=== PATIENT | male | born 1990 | race Caucasian/White ===

== ENCOUNTER 2020-04-08 18:16 | Emergency (ER) | payer SELFPAY ==
[2020-04-08 18:17] VITALS: BP 123/71; PULSE 85; RESP 18; TEMP 37.2; O2SAT 100
--- NOTE | 2020-04-08 19:33 | ED.GENADULT ---
HPI - General Adult General Chief complaint: Wound/Laceration <Jordan Garcia PA-C - Last Filed: 04/08/20 19:37> Stated complaint: needs stitches removed <Jordan Garcia PA-C - Last Filed: 04/08/20 19:37> Time Seen by Provider: 04/08/20 18:25 <Jordan Garcia PA-C - Last Filed: 04/08/20 19:37> Source: patient <Jordan Garcia PA-C - Last Filed: 04/08/20 19:37> Mode of arrival: ambulatory <Jordan Garcia PA-C - Last Filed: 04/08/20 19:37> Limitations: no limitations <Jordan Garcia PA-C - Last Filed: 04/08/20 19:37> History of Present Illness HPI narrative: Patient is a 29-year-old male who presents to emergency department for evaluation of laceration to the forehead that was done 7 days ago now requesting to have sutures removed has no other complaints presents in no distress had sutures placed at an outside facility <Jordan Garcia PA-C - Last Filed: 04/08/20 19:37> Related Data Home medications: Home Medications Medication Instructions Recorded Confirmed No Home Medications 04/08/20 04/08/20 <Jordan Garcia PA-C - Last Filed: 04/08/20 19:37> Allergies/adverse reactions: Allergies Allergy/AdvReac Type Severity Reaction Status Date / Time No Known Allergies Allergy Unverified 04/08/20 18:21 <Jordan Garcia PA-C - Last Filed: 04/08/20 19:37> Review of Systems Review of Systems: All systems reviewed & are unremarkable except as noted in HPI and below <Jordan Garcia PA-C - Last Filed: 04/08/20 19:37> PMFSH Social History Social History: Social History (Updated 04/08/20 @ 19:35 by Jordan Garcia PA-C) Smoking status: Never smoker Gender identity (if verbalized by the patient): Male <MANDIE Gibson Last Filed: 04/08/20 19:37> Exam Narrative: Exam Narrative: GENERAL: Well-appearing, well-nourished, and in no acute distress. HEAD: Normocephalic, atraumatic. Patient with 2 healing lacerations wound well approximated localized to the forehead EYES: PERRLA and EOMI. ENT: Nares clear, no rhinorrhea or epistaxis. Mucous membranes moist. Oropharynx without tonsillar hypertrophy exudate or other lesions. EXTREMITIES: Normal range of motion. No edema. SKIN: Warm, dry, no rash. NEURO: No focal deficits. Alert and oriented x3. PSYCH: Normal mood and affect. <MANDIE Gibson Last Filed: 04/08/20 19:37> Course Course Emergency Course: Patient in the room in no distress aware of case findings treatment plan and diagnosis agreeing to follow-up as directed <MANDIE Gibson Last Filed: 04/08/20 19:37> Vital Signs Vital signs: Vital Signs Temperature 37.2 C 04/08/20 18:17 Pulse Rate 85 04/08/20 18:17 Respiratory Rate 18 04/08/20 18:17 Blood Pressure 123/71 04/08/20 18:17 Pulse Oximetry 100 04/08/20 18:17 Temperature 37.2 C 04/08/20 18:17 Pulse Rate 78 04/08/20 19:43 Respiratory Rate 18 04/08/20 19:43 Blood Pressure 122/78 04/08/20 19:43 Pulse Oximetry 99 04/08/20 19:43 <MANDIE Gibson Last Filed: 04/08/20 19:37> Vital Signs Temperature 37.2 C 04/08/20 18:17 Pulse Rate 85 04/08/20 18:17 Respiratory Rate 18 04/08/20 18:17 Blood Pressure 123/71 04/08/20 18:17 Pulse Oximetry 100 04/08/20 18:17 Temperature 37.2 C 04/08/20 18:17 Pulse Rate 78 04/08/20 19:43 Respiratory Rate 18 04/08/20 19:43 Blood Pressure 122/78 04/08/20 19:43 Pulse Oximetry 99 04/08/20 19:43 <Beatrice Fitch MD - Last Filed: 04/08/20 19:46> Procedures Other Procedure Procedure 1: Other Procedure: Patient with 2 lacerations to the forehead both of which had continuous running sutures both running sutures were removed no complications <MANDIE Gibson Last Filed: 04/08/20 19:37> Medical Decision Making MDM Narrative Medical decision making narrative: Patient presented for suture rem
[2020-04-08 19:43] VITALS: BP 122/78; PULSE 78; RESP 18; O2SAT 99
== END 2020-04-08 19:45 | disposition home or self-care (01) ==
PROVIDERS: Emergency Provider Emergency Medicine
DX: Z48.02 Encounter for removal of sutures (principal)
CPT/HCPCS: 99281